=== PATIENT | male | born 1975 | race Caucasian/White ===

== ENCOUNTER 2017-09-17 09:51 | Emergency (ER) | payer OTHER ==
--- NOTE | 2017-09-17 10:09 | EDM.PDOC ---
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 He is able to bear wt, but it is painful. Denies any other injury. 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 [No Known Home Meds] 09/17/17 [History] Past Medical History - Past Health History Medical/Surgical History: Denies Medical/Surgical History Social & Family History - Family History Family Medical History: Noncontributory - Living Situation & Occupation Occupation: Employed ([employer]) Review of Systems - Review of Systems Review Of Systems: ROS reveals no pertinent complaints other than HPI. ED EXAM, GENERAL - Physical Exam Exam: See Below Exam Limited By: No Limitations General Appearance: Alert, WD/WN, No Apparent Distress Respiratory/Chest: No Respiratory Distress Cardiovascular: Normal Peripheral Pulses Extremities: Normal Capillary Refill, Joint Swelling (mild at left lateral ankle ), Leg Pain (left ankle), Other (subacute bruising with dependent bruising of left ankle and foot). No: Pedal Edema Neurological: Alert, Oriented, No Motor/Sensory Deficits, Other (slight limp favoring left lower extremity) Psychiatric: Normal Affect, Normal Mood Skin Exam: Warm, Dry, Intact Course - Vital Signs Last Recorded V/S: Last Vital Signs Temp 36.6 C 09/17/17 10:04 Pulse 65 09/17/17 10:04 Resp 16 09/17/17 10:04 BP 125/78 09/17/17 10:04 Pulse Ox 98 09/17/17 10:04 - Orders/Labs/Meds Orders: Active Orders 24 hr Category Date Time Status Ankle Min 3V Lt [CR] Urgent Exams 09/17/17 10:17 Taken - Radiology Interpretation Free Text/Narrative:: Xray left ankle: no fracture, see Rad. report. Departure - Departure Time of Disposition: 10:34 Disposition: Home, Self-Care 01 Condition: Good Clinical Impression: Left ankle sprain Qualifiers: Encounter type: initial encounter Involved ligament of ankle: unspecified ligament Qualified Code(s): S93.402A - Sprain of unspecified ligament of left ankle, initial encounter - Discharge Information Instructions: Ankle Sprain Forms: ED Department Discharge Additional Instructions: Rest, ice packs, and elevate left ankle to reduce pain and swelling. Light activity as tolerated, avoid running, marching, and use caution on uneven surfaces. Follow up in clinic for recheck if not improving as expected in 7 to 10 days. - My Orders Last 24 Hours: My Active Orders 09/17/17 10:17 Ankle Min 3V Lt [CR] Urgent - Assessment/Plan Last 24 Hours: My Active Orders 09/17/17 10:17 Ankle Min 3V Lt [CR] Urgent
== END 2017-09-17 10:56 | disposition home or self-care (01) ==
LOC: DL.ED 09:51
DX: S93.402A Sprain of unspecified ligament of left ankle, initial encounter (principal); W19.XXXA Unspecified fall, initial encounter
CPT/HCPCS: 73610-LT; 99284